=== PATIENT | male | born 1960 | race Caucasian/White ===

== ENCOUNTER 2020-05-01 06:48 | Day surgery (SDC) | payer BC ==
[~2020-05-01 06:48] MED LIST: Midazolam 1 MG/ML 2 ML SDV ONE; fentaNYL 100 MCG/2 ML SDV ONE
[2020-05-01] MEDS ORDERED: Midazolam 1 MG/ML 2 ML SDV IV ONE ×6 (06:49→08:13)
[2020-05-01] MEDS ORDERED: fentaNYL 100 MCG/2 ML SDV IV ONE ×3 (06:49→08:07)
[2020-05-01] MEDS ORDERED: Dextrose 5%-0.45% NaCl 1,000 ML IV SCH (07:45)
--- NOTE | 2020-05-01 12:33 | OR ---
DATE: 05/01/2020 PREOPERATIVE DIAGNOSIS: Screening colonoscopy. POSTOPERATIVE DIAGNOSIS: Screening colonoscopy. PROCEDURE: Total colonoscopy. ANESTHESIA: Conscious sedation with IV Versed and fentanyl. SPECIMEN: None. OPERATIVE FINDINGS: Normal colonoscopy. RECOMMENDATIONS: Followup screening colonoscopy in 10 years or earlier for symptoms. INDICATION FOR PROCEDURE: This 59-year-old male presents for screening colonoscopy. PROCEDURE IN DETAIL: After adequate preparation, a colonoscope was inserted into the rectum. This was easily passed all the way to the cecum. Confirmation of the cecum was made by visualization of the ileocecal valve and the appendiceal opening. The bowel prep was excellent. On withdrawal of the scope, no abnormalities were noted. He does have just a very few scattered diverticula throughout the colon, but these will be of no consequence. Anal and rectal examinations are also normal. Air was suctioned from the colon and the scope removed. [facility] /[id number]
== END 2020-05-01 10:40 | disposition home or self-care (01) ==
LOC: EDSEX → DL.ENDO 06:48
PROVIDERS: ATTEND Surgery
DX: Z12.11 Encounter for screening for malignant neoplasm of colon (principal); K57.30 Diverticulosis of large intestine without perforation or abscess without bleeding; Z11.59 Encounter for screening for other viral diseases
CPT/HCPCS: 45378; J2250; J3010; J7042; U0002